=== PATIENT | male | born 1935 | race Caucasian/White ===

== ENCOUNTER 2018-11-05 10:58 | Inpatient (IN) | payer OTHER ==
[~2018-11-05] VITALS: Ht 170.2 cm; Wt 104.3 kg
[2018-11-05] MEDS ORDERED: ASPirin 81 mg TAB PO ONE (11:15)
[2018-11-05 11:34] LABS: Basophils # (auto) 0.1 uL; Basophils % (auto) 1.1 % (0.0-2.0); Eosinophils # (auto) 0.3 uL; Eosinophils % (auto) 4.2 % (0.0-7.0); Hematocrit 46.7 % (41.0-53.0); Hemoglobin 15.9 g/dL (13.5-17.5); Lymphocytes # (auto) 1.2 uL; Lymphocytes % (auto) 19.8 % (10.0-50.0); Mean Corpuscular Hemoglobin 31.5 pg (28.0-32.0); Mean Corpuscular Hgb Conc. 34.1 g/dL (32.0-36.0); Mean Corpuscular Volume 92.4 fL (80.0-100.0); Monocytes # (auto) 0.6 uL; Monocytes % (auto) 9.2 % (0.0-12.0); Neutrophils # (auto) 4.1 uL; Neutrophils % (auto) 65.7 % (37.0-80.0); Nucleated Red Blood Cells % 0.1 %; Platelet Count (auto) 192 10^3/uL (140-450); Red Blood Cells 5.05 10^6/uL (4.5-5.90); Red Cell Distribution Width 14.3 % (11.8-14.3); White Blood Cell 6.2 10^3/uL (4.4-10.8)
[2018-11-05 11:49] LABS: Albumin 3.5 g/dL (3.4-5.0); Calcium 8.8 mg/dL (8.5-10.1); Potassium 4.2 mmol/L (3.5-5.1)
[2018-11-05 11:50] LABS: INR 0.89 (0.9-1.15); Partial Thromboplastin Time 27.1 sec (23.78-33.04); Prothrombin Time 9.6 sec (9.27-12.13)
[2018-11-05 11:54] LABS: BUN/Creatinine Ratio 20.9; Bilirubin, Total 0.4 mg/dL (0.2-1.0); Total Protein 7.1 g/dL (6.4-8.2)
[2018-11-05] MEDS ORDERED: DULO60CA PO (14:34)
[2018-11-05] MEDS ORDERED: METH750T3 PO (14:34)
[2018-11-05] MEDS ORDERED: OMEP20TA PO (14:34)
[2018-11-05] MEDS ORDERED: CHOL20007 PO (14:34)
[2018-11-05] MEDS ORDERED: PANC24002 PO (14:34)
[2018-11-05] MEDS ORDERED: MECL12.554 PO (14:34)
[2018-11-05] MEDS ORDERED: NAP500T PO (14:34)
[2018-11-05] MEDS ORDERED: ALBU2TAB4 INH (14:34)
[2018-11-05] MEDS ORDERED: HYDR-4683 PO (14:34)
[2018-11-05] MEDS ORDERED: ONDA-143 PO (14:34)
[2018-11-05] MEDS ORDERED: ATOR80TA PO (14:34)
[2018-11-05] MEDS ORDERED: NITR0.4S29 SL (14:34)
[2018-11-05] MEDS ORDERED: LISI-275 PO (14:34)
[2018-11-05] MEDS ORDERED: HYDROcodone-ACET 5/325MG TAB PO PRN (15:30)
[2018-11-05] MEDS ORDERED: NITROGLYCERIN 0.4 MG SL TAB SL PRN (15:30)
[2018-11-05] MEDS ORDERED: ONDANSETRON HCL 4 MG/2 ML VIAL IV PRN (15:30)
[2018-11-05] MEDS ORDERED: ACETAMINOPHEN 500 MG TAB PO PRN (15:30)
[2018-11-05] MEDS ORDERED: DEXTROSE (50%) 50ML SYRG IV PRN (15:30)
[2018-11-05] MEDS ORDERED: NITROGLYCERIN 0.4MG/HR TOPICAL PATCH TD ONE (15:30)
[2018-11-05] MEDS ORDERED: MORPHINE SULFATE 4 MG/ML SYR/VIAL IV PRN (15:30)
[2018-11-05] MEDS ORDERED: MORPHINE SULF INJ 2 MG/ML SYRINGE 1ML IV PRN (15:30)
[2018-11-05] MEDS ORDERED: ENOXAPARIN SOD 80 MG/0.8ML SYRINGE SC ONE (15:30)
[2018-11-05] MEDS: METOPROLOL SUCCINATE XL 50 MG TAB PO SCH (15:58)
[2018-11-05 16:48] LABS: Urine Bacteria NONE SEEN /hpf (None Seen); Urine Blood Negative /uL (Negative); Urine Mucus FEW (None Seen); Urine Specific Gravity 1.023 (1.001-1.035); Urine WBC 5 /hpf (0 - 3)
[2018-11-05] MEDS: InsuLIN REG 1unit/0.01ml Soln (100units/ml) SC SCH ×2 (17:00→22:00)
[2018-11-05] MEDS: ACCU-CHEK COMFORT CURVE STRIP VI SCH ×2 (17:15→22:50)
--- NOTE | 2018-11-05 20:00 | NUR ---
Telemetry admit from LESIA BURGESSKEL admitted to Telemetry unit after SBAR received. Patient oriented to AMIE MORTON, primary RN, unit, room, bed, and unit policies regarding patient care and visiting hours. Patient now on continuous telemetry monitoring, tele box # 5 and telemetry reading on arrival to unit is SA. Patient weighed by bedscale and encouraged to call if they need something. All questions and concerns addressed, patient verbalized understanding. Note:
[2018-11-05 22:00] VITALS: BP 104/102
[2018-11-05] MEDS: ATORVASTATIN 20 MG TAB PO SCH (22:50)
[2018-11-06 01:03] VITALS: BP 144/102
[2018-11-06 05:40] VITALS: BP 132/76
[2018-11-06] MEDS: ACCU-CHEK COMFORT CURVE STRIP VI SCH ×4 (06:40→22:06)
[2018-11-06] MEDS: InsuLIN REG 1unit/0.01ml Soln (100units/ml) SC SCH ×4 (06:40→22:06)
--- NOTE | 2018-11-06 07:07 | NUR ---
SHIFT END PATIENT RESTING IN BED W/NO S/S OF DISTRESS OR COMPLAINTS OF PAIN. BED IN LOWEST LOCKED POSITION W/CALL ELIAS W/IN REACH. PREP'D FOR HEART CATH: BATH, CHG WIPES, 2 IV SITES PRESENT, BL GROINS SHAVED, AND CONSENTS SIGNED. ENDORSING CARE TO DAY SHIFT RN.
[2018-11-06 07:25] LABS: Basophils # (auto) 0.1 uL; Basophils % (auto) 1.2 % (0.0-2.0); Eosinophils # (auto) 0.3 uL; Eosinophils % (auto) 4.6 % (0.0-7.0); Hematocrit 41.9 % (41.0-53.0); Hemoglobin 14.5 g/dL (13.5-17.5); Lymphocytes # (auto) 1.2 uL; Lymphocytes % (auto) 21.7 % (10.0-50.0); Mean Corpuscular Hemoglobin 31.3 pg (28.0-32.0); Mean Corpuscular Hgb Conc. 34.6 g/dL (32.0-36.0); Mean Corpuscular Volume 90.4 fL (80.0-100.0); Monocytes # (auto) 0.5 uL; Monocytes % (auto) 9.2 % (0.0-12.0); Neutrophils # (auto) 3.5 uL; Neutrophils % (auto) 63.3 % (37.0-80.0); Nucleated Red Blood Cells % 0.2 %; Platelet Count (auto) 187 10^3/uL (140-450); Red Blood Cells 4.63 10^6/uL (4.5-5.90); Red Cell Distribution Width 14.4 % (11.8-14.3); White Blood Cell 5.6 10^3/uL (4.4-10.8)
[2018-11-06 07:44] LABS: BUN/Creatinine Ratio 21.8; Calcium 8.9 mg/dL (8.5-10.1)
--- NOTE | 2018-11-06 07:45 | NUR ---
Patient down to greens laborer. No S/S of of distress.
--- NOTE | 2018-11-06 07:55 | NUR ---
Called patient , Nicole, password verified. 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 Patient verbalized understanding.
[2018-11-06] MEDS ORDERED: LIDOCAINE 2%HCL (LOCAL ANESTH.) INJ 20ML MDV ONE ×2 (08:44→12:52)
[2018-11-06 08:50] VITALS: BP 118/72
[2018-11-06] MEDS ORDERED: fentaNYL CITRATE 100 MCG/2 ML VL ONE ×4 (09:12→13:35)
[2018-11-06] MEDS ORDERED: SODIUM CHL 0.9% 50 ML ONE ×2 (09:12→11:24)
[2018-11-06] MEDS ORDERED: ANGIOMAX 250 MG VIAL IV ONE ×3 (09:12→13:32)
[2018-11-06] MEDS ORDERED: MIDAZOLAM HCL 1MG/1ML-2 ML VIAL ONE ×2 (09:12→11:24)
[2018-11-06] MEDS ORDERED: ASPirin-EC 81 mg tab PO SCH (10:00)
[2018-11-06] MEDS ORDERED: DULoxetine HCL 30 MG CAP PO SCH (10:00)
[2018-11-06] MEDS: METOPROLOL SUCCINATE XL 50 MG TAB PO SCH (10:00)
[2018-11-06] MEDS ORDERED: NITROGLYCERIN 0.4MG/HR TOPICAL PATCH TD SCH (10:00)
[2018-11-06] MEDS ORDERED: ONDANSETRON HCL 4 MG/2 ML VIAL ONE (10:56)
[2018-11-06] MEDS ORDERED: IODIXANOL 320MG/ML 100ML BTL IV ONE ×2 (11:20→13:14)
[2018-11-06] MEDS ORDERED: diphenhdrAMINE HCL 50 MG/1 ML VL ONE ×2 (11:50→12:58)
[2018-11-06] MEDS ORDERED: HALOPERIDOL LACTATE 5 MG/ML INJ VIAL IV ONE (12:00)
[2018-11-06] MEDS ORDERED: CLOPIDOGREL 300 MG TAB ONE (12:28)
[2018-11-06] MEDS ORDERED: ATROPINE SULF 1 MG/10ml SYR ONE (12:59)
[2018-11-06] MEDS ORDERED: EPINEPHrine HCL 1 MG/10 ML SYRG ONE (12:59)
[2018-11-06] MEDS ORDERED: EPTIFIBATIDE INJ (2MG/ML) 10ML VIAL IV ONE (13:08)
[2018-11-06] MEDS ORDERED: NOREPINEPHRINE 8 MG/250ML KIT 0 ML IV ONE (13:15)
[2018-11-06] MEDS ORDERED: DOPamine 1600MCG/ML D5W 0 ML IV ONE (13:15)
[2018-11-06] MEDS ORDERED: hydrALAZINE HCL 20 MG/ML VL ONE (13:53)
[2018-11-06] MEDS ORDERED: SODIUM CHLORIDE 0.9% 1,000 ML IV SCH (14:00)
--- NOTE | 2018-11-06 15:27 | NUR ---
ANY FURTHER PROCEDURES WILL NEED TO GET PERMISSION FROM [facility]. THEY WOULD WANT TO TRANSFER PT BACK IN CONTRACTED FACILITY.
[2018-11-06 16:00] VITALS: BP 151/81
--- NOTE | 2018-11-06 16:00 | NUR ---
PATIENT RETURNED TO THE FLOOR FROM SHOE STOCK ASSOCIATE. FAMILY AT BEDSIDE. NO S/S OF DISTRESS. PATIENT RESTING COMFORTABLY. DRESSINGS TO RIGHT AND LEFT GROIN CLEAN, DRY, AND INTACT. BED ALARM ON. WILL CONTINUE TO MONITOR.
--- NOTE | 2018-11-06 17:30 | NUR ---
PATIENT BED ALARM GOING OFF. WALKED INTO ROOM AND FOUND PATIENT STANDING UP AT THE BESIDE, PERALES CATHETER PULLED TIGHT ACROSS THE BED. RIGHT GROIN DRESSING CLEAN, DRY, AND INTACT. LEFT GROIN DRESSING FOUND BLEEDING. PATIENT RETURNED TO BED. PRESSURE HELD TO LEFT GROIN FOR 15 MINUTES. BLEEDING STOPPED, SURROUNDING AREA SOFT TO PALPATION. NEW DRESSING APPLIED. PATIENT TOLERATED WELL, NO S/S OF DISTRESS. CHARGE NURSE AWARE. BED ALARM ON AND SITTER AT BEDSIDE.
--- NOTE | 2018-11-06 19:32 | NUR ---
CLOSING NOTE ARE ENDORSED TO MAINTENANCE TRUCK DRIVER RN. RN AWARE OF PROCEDURE TODAY. LEFT AND RIGHT GROIN DRESSING CLEAN, DRY, AND INTACT. PERALES INTACT AND DRAINING. NO S/S OF DISTRESS. PATIENT SITTING IN BED LOW LOCK POSITION, CALL LIGHT IN REACH. NO S/S OF DISTRESS. SITTER AT BEDSIDE
--- NOTE | 2018-11-06 19:44 | NUR ---
PATIENT TRANSFERRED TO ROOM 221A. AYUSH INFORMED. SBAR REPORT GIVEN TO NEW NURSE, SUKHWINDER.
--- NOTE | 2018-11-06 19:45 | NUR ---
Opening Shift Note Assumed care of patient, awake and alert, oriented x 4. on room air with even and unlabored respirations. No S/S of distress/SOB. patient denies pain at this time. Dressing to right and left groin CDI with no s/s of bleeding or hematoma. Bilateral radial pulses even and regular. Bilateral pedal pulse even but weak, brisk capillary refill. De Oliveira intact and draining to gravity. IV's intact and patent. Sitter at bedside. Instructed on POC and to call for assist PRN, will continue to monitor for changes Q1hr and PRN.
--- NOTE | 2018-11-06 20:50 | NUR ---
Received call from MD Kapadia patient will be transfer to [facility] via [facility].
[2018-11-06] MEDS: ATORVASTATIN 20 MG TAB PO SCH (21:51)
--- NOTE | 2018-11-06 22:00 | NUR ---
Received call from MD Kapadia patient will be going to room 276A at [facility]. Order received to keep De Oliveira catheter in place.
--- NOTE | 2018-11-06 22:33 | NUR ---
Family notified of transfer spoke with patients Nicole, update on transfer to [facility] and room number.
--- NOTE | 2018-11-06 22:45 | NUR ---
Report given to Yissel CEVALLOS at [facility]
--- NOTE | 2018-11-06 22:53 | NUR ---
[facility] ETA IS 90MINS. PRIMARY RN SUKHWINDER PHIPPS.
--- NOTE | 2018-11-06 23:57 | NUR ---
Pt being trans to another hosp Order obtained for transfer of KEL BURGESS to . Report called/given to Yissel CEVALLOS. Report given to EMS transport team. Medication reconciliation form completed and copy given to patient. Transported via [facility] along with copied chart and imaging films/disk and all personal belongings. No distress noted on time of departure. Family notified of destination and room number Nicole verbalized understanding. NOTE:
[2018-11-07] MEDS ORDERED: CLOPIDOGREL BISULFATE 75 MG TAB PO SCH (10:00)
== END 2018-11-07 00:54 | disposition short-term general hospital (02) | DRG 246 ==
LOC: ER 10:58 → TELE 15:25 → TELE-EAST 19:59 → TELE-CENTR 11-06 19:37
PROVIDERS: ADMIT Nurse Practitioner Acute Care; ATTEND Family Medicine
PROC: 027034Z Dilation of Coronary Artery, One Artery with Drug-eluting Intraluminal Device, Percutaneous Approach (ICD-10-PCS; principal; 2018-11-06)
PROC: 4A023N7 Measurement of Cardiac Sampling and Pressure, Left Heart, Percutaneous Approach (ICD-10-PCS; 2018-11-06)
PROC: B2111ZZ Fluoroscopy of Multiple Coronary Arteries using Low Osmolar Contrast (ICD-10-PCS; 2018-11-06)
PROC: B2151ZZ Fluoroscopy of Left Heart using Low Osmolar Contrast (ICD-10-PCS; 2018-11-06)
PROC: B2181ZZ Fluoroscopy of Left Internal Mammary Bypass Graft using Low Osmolar Contrast (ICD-10-PCS; 2018-11-06)
PROC: B21F1ZZ Fluoroscopy of Other Bypass Graft using Low Osmolar Contrast (ICD-10-PCS; 2018-11-06)
DX: T82.857A Stenosis of other cardiac prosthetic devices, implants and grafts, initial encounter (principal); I21.4 Non-ST elevation (NSTEMI) myocardial infarction; Q25.0 Patent ductus arteriosus; I11.0 Hypertensive heart disease with heart failure; Z91.19 Patient's noncompliance with other medical treatment and regimen; E11.9 Type 2 diabetes mellitus without complications; E66.01 Morbid (severe) obesity due to excess calories; Z68.36 Body mass index [BMI] 36.0-36.9, adult; Z71.3 Dietary counseling and surveillance; E78.5 Hyperlipidemia, unspecified; I25.10 Atherosclerotic heart disease of native coronary artery without angina pectoris; I50.9 Heart failure, unspecified; J45.909 Unspecified asthma, uncomplicated; Z82.49 Family history of ischemic heart disease and other diseases of the circulatory system; Z87.891 Personal history of nicotine dependence; Z91.14 Patient's other noncompliance with medication regimen; Z95.1 Presence of aortocoronary bypass graft; Z96.659 Presence of unspecified artificial knee joint; Z90.49 Acquired absence of other specified parts of digestive tract; Z88.6 Allergy status to analgesic agent; Z88.0 Allergy status to penicillin; Z88.8 Allergy status to other drugs, medicaments and biological substances; Z79.899 Other long term (current) drug therapy
CPT/HCPCS: 36415; 71045; 80048; 80053; 80061; 81001; 82962; 83036; 83880; 84443; 84484; 85025; 85610; 85730; 86850; 86900; 86901; 93005; 93306; 96372; A4565; A6257; G0378; J1815; J2250; J2405; Q9967